=== PATIENT | female | born 1985 | race Caucasian/White ===

== ENCOUNTER 2023-10-29 20:52 | Emergency (ER) | payer SELFPAY ==
[~2023-10-29] VITALS: Ht 177.8 cm; Wt 67.1 kg
[~2023-10-29 20:52] MED LIST: LISD60CA PO
[2023-10-29 21:26] LABS: BASOPHILS # (AUTO) 0.1 K/UL (0.0-0.2); BASOPHILS % (AUTO) 0.7 % (0.0-2.0); EOSINOPHILS # (AUTO) 0.1 K/uL (0.0-0.7); EOSINOPHILS % (AUTO) 0.6 % (0.0-7.0); HEMATOCRIT 41.8 % (31.2-41.9); HEMOGLOBIN 13.7 g/dL (10.9-14.3); LYMPHOCYTES # (AUTO) 2.3 K/uL (0.8-4.8); LYMPHOCYTES % (AUTO) 28.9 % (20.5-51.5); MEAN CORPUSCULAR HEMOGLOBIN 31.5 uug (24.7-32.8); MEAN CORPUSCULAR HGB CONC 33 g/dL (32.3-35.6); MONOCYTES # (AUTO) 0.6 K/uL (0.1-1.30); MONOCYTES % (AUTO) 7.8 % (0.0-11.0); PLATELET COUNT (AUTO) 240 K/uL (179-408); RED BLOOD CELL COUNT(AUTO) 4.35 MIL/uL (3.63-4.92); RED CELL DISTRIBUTION WIDTH 13.5 % (12.3-17.7); WHITE BLOOD COUNT (AUTO) 8.1 K/uL (3.8-11.8)
[2023-10-29 21:27] LABS: DIFFERENTIAL COMMENT 1
[2023-10-29 21:32] LABS: CALCIUM 9.1 mg/dL (8.5-10.1); CREATININE 0.9 mg/dL (0.6-1.3); POTASSIUM 3.9 mmol/L (3.5-5.1)
[2023-10-29] MEDS: IV NORMAL SALINE 1000 ML BAG IV ONE (21:33)
[2023-10-29 21:38] LABS: ALBUMIN 3.8 g/dL (3.4-5.0); BILIRUBIN,DIRECT 0.1 mg/dL (0.0-0.2); BILIRUBIN,TOTAL 0.3 mg/dL (0.2-1.0); TOTAL PROTEIN, SERUM 7.3 g/dL (6.4-8.2)
[2023-10-29] MEDS ORDERED: LIDOCAINE 2%-EPI 1:100,000 20 ML VIAL ONE (21:42)
[2023-10-29] MEDS: LIDOCAINE 2%-EPI 1:100,000 20 ML VIAL IJ ONE (21:47)
[2023-10-29] MEDS ORDERED: NEOMY/BACITRA/POLYMYXIN B OINT UD PACKET TP ONE ×2 (22:14→22:33)
[2023-10-29] MEDS: NEOMY/BACITRA/POLYMYXIN B OINT UD PACKET TP ONE (22:31)
[2023-10-29 22:38] VITALS: BP 125/74; TEMP 98; O2SAT 99
== END 2023-10-29 22:39 | disposition home or self-care (01) ==
LOC: ER 20:56
DX: S01.01XA Laceration without foreign body of scalp, initial encounter (principal); R55 Syncope and collapse; Z79.899 Other long term (current) drug therapy; X58.XXXA Exposure to other specified factors, initial encounter; Y93.89 Activity, other specified; Y92.89 Other specified places as the place of occurrence of the external cause; Y99.8 Other external cause status
CPT/HCPCS: 99284; 12001; 80076; 80048; 85025; 84484; 36415; 93005; J7040; A4606; A4663

== ENCOUNTER 2023-11-06 10:26 | Emergency (ER) | payer MEDICAID ==
[~2023-11-06] VITALS: Ht 177.8 cm; Wt 65.8 kg
[2023-11-06 10:28] VITALS: O2SAT 100
== END 2023-11-06 10:48 | disposition home or self-care (01) ==
LOC: ER 10:26
DX: S01.01XD Laceration without foreign body of scalp, subsequent encounter (principal); X58.XXXD Exposure to other specified factors, subsequent encounter; Z48.02 Encounter for removal of sutures; Z79.899 Other long term (current) drug therapy
CPT/HCPCS: A4606; A4663

== ENCOUNTER 2023-12-16 22:04 | Emergency (ER) | payer MEDICAID ==
[~2023-12-16] VITALS: Ht 177.8 cm; Wt 65.8 kg
[2023-12-16 22:30] VITALS: BP 130/78; O2SAT 98
== END 2023-12-16 22:31 | disposition home or self-care (01) ==
LOC: ER 22:04
DX: S01.01XD Laceration without foreign body of scalp, subsequent encounter (principal); Z79.899 Other long term (current) drug therapy; Z88.7 Allergy status to serum and vaccine; X58.XXXD Exposure to other specified factors, subsequent encounter
CPT/HCPCS: A4606; A4663